=== PATIENT | female | born 1965 | race Caucasian/White ===

== ENCOUNTER 2016-09-12 09:08 | Emergency (ER) | payer SELFPAY ==
[~2016-09-12 09:08] MED LIST: ATENOLOL50 MG PO; CIPRO500 MG PO; GUAFENESIN400 MG PO; HYDROCHLOROTHIA25 MG PO; LAC PO; QUALITY CHOICE PO; ZOC10 PO
[2016-09-12 10:37] LABS: BASOPHIL % 0.3 % (0-2); PLATELET COUNT 229 x10^3mcL (130-400)
[2016-09-12 10:56] LABS: ALKALINE PHOSPHATASE 112 U/L (46-116); ALT/SGPT 149 U/L (14-59); AMYLASE 45 U/L (25-115); AST/SGOT 206 U/L (15-37); CALCIUM 9.2 mg/dL (8.5-10.1); CARBON DIOXIDE 34.4 mmol/L (21-32); CHLORIDE SERUM 100 mmol/L (98-107); CREATININE SERUM 0.7 mg/dL (0.6-1.0); GFR1 > 60 mL/min; GLUCOSE SERUM 104 mg/dL (74-106); LIPASE 128 IU/L (73-393); SODIUM SERUM 142 mmol/L (136-145); TOTAL PROTEIN, SERUM 7.8 g/dL (6.4-8.2)
[2016-09-12 12:29] LABS: microscopic required? YES; urine erythrocyte 1+ (NEGATIVE)
[2016-09-12 15:32] VITALS: BP 112/74
== END 2016-09-12 15:32 | disposition home or self-care (01) ==
LOC: ED 09:08
PROVIDERS: Emergency Medicine
DX: K59.00 Constipation, unspecified (principal); E87.6 Hypokalemia; I10 Essential (primary) hypertension; M06.9 Rheumatoid arthritis, unspecified
CPT/HCPCS: 83880; J1885; J3490

== ENCOUNTER 2016-10-27 12:30 | Emergency (ER) | payer SELFPAY ==
[~2016-10-27] VITALS: Ht 154.9 cm; Wt 80.3 kg
[2016-10-27 15:18] VITALS: BP 135/62
== END 2016-10-27 16:07 | disposition home or self-care (01) ==
LOC: ED 12:30
DX: S09.90XA Unspecified injury of head, initial encounter (principal); G43.909 Migraine, unspecified, not intractable, without status migrainosus; I10 Essential (primary) hypertension; Z88.5 Allergy status to narcotic agent; V49.9XXA Car occupant (driver) (passenger) injured in unspecified traffic accident, initial encounter; Y93.89 Activity, other specified; Y99.8 Other external cause status; Y92.89 Other specified places as the place of occurrence of the external cause

== ENCOUNTER 2017-03-03 08:44 | Inpatient (IN) | payer OTHER ==
[~2017-03-03] VITALS: Ht 154.9 cm; Wt 88.9 kg
[2017-03-03 08:50] VITALS: Ht 154.9 cm; Wt 88.9 kg
[2017-03-03 09:55] LABS: BASOPHIL % 0.3 % (0-2); PLATELET COUNT 173 x10^3mcL (130-400); RED CELL DISTRIBUTION WIDTH 13.2 % (11.5-14.5)
[2017-03-03 10:09] LABS: CALCIUM 8.9 mg/dL (8.5-10.1); CARBON DIOXIDE 28.3 mmol/L (21-32); CHLORIDE SERUM 107 mmol/L (98-107); CREATININE SERUM 0.6 mg/dL (0.6-1.0); GFR1 > 60 mL/min; GLUCOSE SERUM 110 mg/dL (74-106); POTASSIUM SERUM 3.5 mmol/L (3.5-5.1); SODIUM SERUM 144 mmol/L (136-145)
[2017-03-03 10:17] LABS: ALBUMIN 3.4 g/dL (3.4-5.0); ALKALINE PHOSPHATASE 251 U/L (46-116); ALT/SGPT 532 U/L (14-59); AST/SGOT 531 U/L (15-37); BILIRUBIN TOTAL 1.12 mg/dL (0.20-1.00); CHOLESTEROL 178 mg/dL (<200); CHOLESTEROL/HDL RATIO 3.6; HDL CHOLESTEROL 50 mg/dL (40-60); LIPASE 97 IU/L (73-393); TOTAL PROTEIN, SERUM 7.3 g/dL (6.4-8.2); TRIGLYCERIDES 87 mg/dL (<150)
[2017-03-03 10:18] LABS: T3 TOTAL 0.99 ng/mL
[2017-03-03 10:20] LABS: FREE T4 1.38 ng/dL (0.76-1.46); FREE THYROXINE INDEX 3.3 ug/dL (1.4-4.5); T4(THYROXINE) 9.8 ug/dL (4.7-13.3)
[2017-03-03 11:50] LABS: MAGNESIUM 2.1 mg/dL (1.8-2.4)
[2017-03-03 12:01] LABS: UA SPECIFIC GRAVITY 1.025 (1.005-1.035); microscopic required? YES
[2017-03-03 12:02] LABS: urine erythrocyte 2+ (NEGATIVE)
[2017-03-03 12:16] LABS: AMPHETAMINE QUAL UR NONE DETECTED (NEG <=1000)
[2017-03-03 14:55] VITALS: BP 131/85
[2017-03-03 21:47] VITALS: BP 112/51
[2017-03-04 05:30] VITALS: BP 134/78
[2017-03-04 06:34] LABS: PLATELET COUNT 153 x10^3mcL (130-400); RED CELL DISTRIBUTION WIDTH 12.1 % (11.5-14.5)
[2017-03-04 06:43] LABS: CALCIUM 8.1 mg/dL (8.5-10.1); CARBON DIOXIDE 23.8 mmol/L (21-32); CHLORIDE SERUM 110 mmol/L (98-107); CREATININE SERUM 0.5 mg/dL (0.6-1.0); GFR1 > 60 mL/min; GLUCOSE SERUM 80 mg/dL (74-106); MAGNESIUM 1.9 mg/dL (1.8-2.4); PHOSPHOROUS 3.5 mg/dL (2.5-4.9); POTASSIUM SERUM 3.7 mmol/L (3.5-5.1); SODIUM SERUM 143 mmol/L (136-145)
[2017-03-04 06:52] LABS: BASOPHIL % 2.1 % (0-2)
[2017-03-04 09:03] VITALS: BP 139/81
[2017-03-04 13:02] VITALS: BP 137/78
[2017-03-04 16:56] VITALS: BP 154/80
[2017-03-04 21:21] VITALS: BP 130/77
[2017-03-05 05:56] VITALS: BP 108/60
[2017-03-05 11:28] VITALS: BP 151/85
[2017-03-05] MEDS ORDERED: KEFLEX500 M1 PO (14:52)
[2017-03-05] MEDS ORDERED: LAC PO (14:53)
[2017-03-06 13:15] LABS: MITOCHONDRIAL ANTIBODY 12.6 Units (0.0-20.0)
== END 2017-03-05 16:40 | disposition home or self-care (01) | DRG 249 ==
LOC: ED 08:44 → DU 10:57 → MU 10:57 → DU 11:53 → MU 03-04 10:59
PROVIDERS: Internal Medicine Gastroenterology; Specialist; ADMIT Family Medicine
PROC: 0DB98ZX Excision of Duodenum, Via Natural or Artificial Opening Endoscopic, Diagnostic (ICD-10-PCS; principal; 2017-03-05 13:00)
PROC: 0DJD8ZZ Inspection of Lower Intestinal Tract, Via Natural or Artificial Opening Endoscopic (ICD-10-PCS; 2017-03-05 13:00)
DX: A08.4 Viral intestinal infection, unspecified (principal); N17.0 Acute kidney failure with tubular necrosis; N39.0 Urinary tract infection, site not specified; R31.9 Hematuria, unspecified; E78.5 Hyperlipidemia, unspecified; Z68.35 Body mass index [BMI] 35.0-35.9, adult; Z86.73 Personal history of transient ischemic attack (TIA), and cerebral infarction without residual deficits; Z88.6 Allergy status to analgesic agent; I10 Essential (primary) hypertension; Z90.710 Acquired absence of both cervix and uterus; Z90.49 Acquired absence of other specified parts of digestive tract; Z83.3 Family history of diabetes mellitus; Z82.3 Family history of stroke; Z82.49 Family history of ischemic heart disease and other diseases of the circulatory system
CPT/HCPCS: 43235; 45378; 83516; 83880; 84439; J0696; J1200; J1610; J1885; J2250; J2310; J2405; J2765; J3010; J3490; J7030; Q0092

== ENCOUNTER 2018-02-07 13:31 | Inpatient (IN) | payer OTHER ==
[~2018-02-07] VITALS: Ht 154.9 cm; Wt 86.6 kg
[~2018-02-07 13:31] MED LIST changes: +KEFLEX500 M1 PO
[2018-02-07 13:37] VITALS: Ht 154.9 cm; Wt 86.6 kg
[2018-02-07 14:18] LABS: BASOPHIL % 0.3 % (0-2); PLATELET COUNT 226 x10^3mcL (130-400); RED CELL DISTRIBUTION WIDTH 13.3 % (11.5-14.5)
[2018-02-07 14:21] LABS: UA SPECIFIC GRAVITY 1.025 (1.005-1.035); microscopic required? YES; urine erythrocyte 2+ (NEGATIVE)
[2018-02-07 14:29] LABS: CALCIUM 8.7 mg/dL (8.5-10.1); CARBON DIOXIDE 26.1 mmol/L (21-32); CHLORIDE SERUM 102 mmol/L (98-107); CREATININE SERUM 0.6 mg/dL (0.6-1.0); GFR1 > 60 mL/min; GLUCOSE SERUM 101 mg/dL (74-106); POTASSIUM SERUM 3.4 mmol/L (3.5-5.1); SODIUM SERUM 137 mmol/L (136-145)
[2018-02-07 14:34] LABS: ALBUMIN 3.9 g/dL (3.4-5.0); ALKALINE PHOSPHATASE 120 U/L (46-116); ALT/SGPT 62 U/L (14-59); AST/SGOT 28 U/L (15-37); BILIRUBIN TOTAL 0.4 mg/dL (0.20-1.00); HDL CHOLESTEROL 42 mg/dL (40-60); LIPASE 81 IU/L (73-393); TRIGLYCERIDES 106 mg/dL (<150)
[2018-02-07 14:45] LABS: FREE T4 1.27 ng/dL (0.76-1.46); FREE THYROXINE INDEX 3.5 ug/dL (1.4-4.5)
[2018-02-07 14:47] LABS: T3 TOTAL 1.5 ng/mL
[2018-02-07 14:49] LABS: CHOLESTEROL 203 mg/dL (<200); CHOLESTEROL/HDL RATIO 4.8
[2018-02-07 18:31] LABS: MAGNESIUM 2.2 mg/dL (1.8-2.4); PHOSPHOROUS 4.1 mg/dL (2.5-4.9)
[2018-02-07 19:21] VITALS: BP 105/55
[2018-02-07 20:48] VITALS: BP 96/55
[2018-02-07 22:11] LABS: AMPHETAMINE QUAL UR NONE DETECTED (See below)
[2018-02-08 05:07] VITALS: BP 94/57
[2018-02-08 05:52] LABS: BASOPHIL % 0.6 % (0-2); PLATELET COUNT 188 x10^3mcL (130-400); RED CELL DISTRIBUTION WIDTH 13.8 % (11.5-14.5)
[2018-02-08 08:42] LABS: CARBON DIOXIDE 27.5 mmol/L (21-32); CHLORIDE SERUM 112 mmol/L (98-107); CREATININE SERUM 0.5 mg/dL (0.6-1.0); GFR1 > 60 mL/min; GLUCOSE SERUM 95 mg/dL (74-106); SODIUM SERUM 147 mmol/L (136-145)
[2018-02-08 10:01] VITALS: BP 97/55
[2018-02-08 12:20] VITALS: BP 114/66
[2018-02-08 16:23] VITALS: BP 101/62
[2018-02-08 21:07] VITALS: BP 97/53
[2018-02-09 05:06] VITALS: BP 95/47
[2018-02-09 06:20] LABS: BASOPHIL % 0.6 % (0-2); PLATELET COUNT 194 x10^3mcL (130-400); RED CELL DISTRIBUTION WIDTH 13.4 % (11.5-14.5)
[2018-02-09 07:22] LABS: ALKALINE PHOSPHATASE 170 U/L (46-116); ALT/SGPT 241 U/L (14-59); AST/SGOT 192 U/L (15-37); BILIRUBIN DIRECT 0.22 mg/dL (0.0-0.2); BILIRUBIN TOTAL 0.52 mg/dL (0.20-1.00); CARBON DIOXIDE 26.6 mmol/L (21-32); CHLORIDE SERUM 113 mmol/L (98-107); CREATININE SERUM 0.6 mg/dL (0.6-1.0); GFR1 > 60 mL/min; GLUCOSE SERUM 100 mg/dL (74-106); PHOSPHOROUS 3.2 mg/dL (2.5-4.9); POTASSIUM SERUM 4.5 mmol/L (3.5-5.1); SODIUM SERUM 146 mmol/L (136-145)
[2018-02-09 07:32] LABS: ALBUMIN 2.7 g/dL (3.4-5.0); TOTAL PROTEIN, SERUM 5.8 g/dL (6.4-8.2)
[2018-02-09 08:50] VITALS: BP 94/56
[2018-02-09 12:59] VITALS: BP 126/79
[2018-02-09 16:21] VITALS: BP 128/78
[2018-02-09 22:05] VITALS: BP 123/63
[2018-02-10 05:09] VITALS: BP 105/60
[2018-02-10 06:46] LABS: BASOPHIL % 0.5 % (0-2); PLATELET COUNT 195 x10^3mcL (130-400); RED CELL DISTRIBUTION WIDTH 13.3 % (11.5-14.5)
[2018-02-10 07:20] LABS: CALCIUM 8.1 mg/dL (8.5-10.1); CARBON DIOXIDE 27.9 mmol/L (21-32); CHLORIDE SERUM 110 mmol/L (98-107); CREATININE SERUM 0.6 mg/dL (0.6-1.0); GFR1 > 60 mL/min; GLUCOSE SERUM 116 mg/dL (74-106); PHOSPHOROUS 3.7 mg/dL (2.5-4.9); SODIUM SERUM 145 mmol/L (136-145)
[2018-02-10 08:00] VITALS: BP 122/66
[2018-02-10 08:42] LABS: BILIRUBIN DIRECT 0.49 mg/dL (0.0-0.2); BILIRUBIN TOTAL 0.8 mg/dL (0.20-1.00)
[2018-02-10 08:43] LABS: ALBUMIN 2.7 g/dL (3.4-5.0)
[2018-02-10 13:45] VITALS: BP 136/80
[2018-02-10 17:00] VITALS: BP 127/61
[2018-02-10 20:45] VITALS: BP 133/74
[2018-02-11 04:48] VITALS: BP 104/67
[2018-02-11 06:54] LABS: BASOPHIL % 0.5 % (0-2); PLATELET COUNT 202 x10^3mcL (130-400); RED CELL DISTRIBUTION WIDTH 13.7 % (11.5-14.5)
[2018-02-11 07:09] LABS: CALCIUM 8.7 mg/dL (8.5-10.1); CHLORIDE SERUM 107 mmol/L (98-107); CREATININE SERUM 0.7 mg/dL (0.6-1.0); GFR1 > 60 mL/min; GLUCOSE SERUM 102 mg/dL (74-106); POTASSIUM SERUM 3.9 mmol/L (3.5-5.1); SODIUM SERUM 144 mmol/L (136-145)
[2018-02-11 08:51] LABS: BILIRUBIN DIRECT 0.44 mg/dL (0.0-0.2); BILIRUBIN TOTAL 0.9 mg/dL (0.20-1.00); TOTAL PROTEIN, SERUM 6.5 g/dL (6.4-8.2)
[2018-02-11 13:05] VITALS: BP 104/51
[2018-02-11 18:46] VITALS: BP 105/57
[2018-02-11 21:59] VITALS: BP 133/76
[2018-02-12 05:52] VITALS: BP 114/75
[2018-02-12 07:16] LABS: CALCIUM 8.8 mg/dL (8.5-10.1); CARBON DIOXIDE 31.7 mmol/L (21-32); CHLORIDE SERUM 103 mmol/L (98-107); CREATININE SERUM 0.7 mg/dL (0.6-1.0); GFR1 > 60 mL/min; GLUCOSE SERUM 122 mg/dL (74-106); POTASSIUM SERUM 4.1 mmol/L (3.5-5.1); SODIUM SERUM 143 mmol/L (136-145)
[2018-02-12 07:21] LABS: BASOPHIL % 0.3 % (0-2); PLATELET COUNT 211 x10^3mcL (130-400); RED CELL DISTRIBUTION WIDTH 13.5 % (11.5-14.5)
[2018-02-12 08:04] VITALS: BP 143/81
[2018-02-12 08:06] LABS: LIPASE 6727 IU/L (73-393)
[2018-02-12 12:12] VITALS: BP 117/62
[2018-02-12 16:01] VITALS: BP 106/68
[2018-02-12 21:16] VITALS: BP 128/69
[2018-02-13 05:39] VITALS: BP 110/50
[2018-02-13 07:12] LABS: CALCIUM 8.9 mg/dL (8.5-10.1); CARBON DIOXIDE 29.4 mmol/L (21-32); CHLORIDE SERUM 105 mmol/L (98-107); CREATININE SERUM 0.7 mg/dL (0.6-1.0); GFR1 > 60 mL/min; GLUCOSE SERUM 98 mg/dL (74-106); LIPASE 621 IU/L (73-393); POTASSIUM SERUM 4.1 mmol/L (3.5-5.1); SODIUM SERUM 141 mmol/L (136-145)
[2018-02-13 07:18] LABS: BASOPHIL % 0.4 % (0-2); PLATELET COUNT 203 x10^3mcL (130-400); RED CELL DISTRIBUTION WIDTH 13.9 % (11.5-14.5)
[2018-02-13 07:54] VITALS: BP 109/60
[2018-02-13 10:33] LABS: BILIRUBIN DIRECT 0.13 mg/dL (0.0-0.2); BILIRUBIN TOTAL 0.5 mg/dL (0.20-1.00); TOTAL PROTEIN, SERUM 6.2 g/dL (6.4-8.2)
[2018-02-13 10:34] LABS: ALBUMIN 2.9 g/dL (3.4-5.0)
[2018-02-13] MEDS ORDERED: BIA500 PO (11:08)
[2018-02-13] MEDS ORDERED: AMO500 PO (11:08)
[2018-02-13] MEDS ORDERED: PROTONIX40 MG PO (11:09)
[2018-02-13] MEDS ORDERED: LAC PO (11:10)
[2018-02-13 13:01] VITALS: BP 115/76
[2018-02-13 13:09] VITALS: BP 115/76
== END 2018-02-13 14:37 | disposition home or self-care (01) ==
LOC: ED 13:31 → DU 17:34
PROVIDERS: Family Medicine; General Practice; Internal Medicine; Internal Medicine Gastroenterology; Specialist
PROC: 0DB68ZX Excision of Stomach, Via Natural or Artificial Opening Endoscopic, Diagnostic (ICD-10-PCS; principal; 2018-02-11 09:00)
PROC: 0F798ZZ Dilation of Common Bile Duct, Via Natural or Artificial Opening Endoscopic (ICD-10-PCS; 2018-02-11 09:00)
PROC: 0F778ZZ Dilation of Common Hepatic Duct, Via Natural or Artificial Opening Endoscopic (ICD-10-PCS; 2018-02-11 09:00)
DX: K83.4 Spasm of sphincter of Oddi (principal); K85.90 Acute pancreatitis without necrosis or infection, unspecified; E44.0 Moderate protein-calorie malnutrition; K83.1 Obstruction of bile duct; K26.9 Duodenal ulcer, unspecified as acute or chronic, without hemorrhage or perforation; K29.70 Gastritis, unspecified, without bleeding; E66.9 Obesity, unspecified; N39.0 Urinary tract infection, site not specified; E87.6 Hypokalemia; I10 Essential (primary) hypertension; R74.0 Nonspecific elevation of levels of transaminase and lactic acid dehydrogenase [LDH]; E78.5 Hyperlipidemia, unspecified; Z68.36 Body mass index [BMI] 36.0-36.9, adult; Z86.73 Personal history of transient ischemic attack (TIA), and cerebral infarction without residual deficits; Z88.5 Allergy status to narcotic agent; Z90.710 Acquired absence of both cervix and uterus; Z82.0 Family history of epilepsy and other diseases of the nervous system; Z83.3 Family history of diabetes mellitus; Z82.3 Family history of stroke; Z82.49 Family history of ischemic heart disease and other diseases of the circulatory system
CPT/HCPCS: 43260; 74181; 83880; 84439; C1769; C9113; J0696; J1170; J1610; J1885; J1956; J2405; J2765; J3010; J3490; J7030; J7120; Q0092; Q9967

== ENCOUNTER 2018-07-11 18:51 | Emergency (ER) | payer SELFPAY ==
[~2018-07-11] VITALS: Ht 154.9 cm; Wt 90.7 kg
[~2018-07-11 18:51] MED LIST changes: +AMO500 PO; +BIA500 PO; +PROTONIX40 MG PO
[2018-07-11 19:19] VITALS: BP 128/86; Ht 154.9 cm; Wt 90.7 kg
== END 2018-07-11 20:17 | disposition home or self-care (01) ==
LOC: ED 18:51
DX: M70.61 Trochanteric bursitis, right hip (principal); Y93.89 Activity, other specified; I10 Essential (primary) hypertension; Z86.73 Personal history of transient ischemic attack (TIA), and cerebral infarction without residual deficits; Z90.710 Acquired absence of both cervix and uterus
CPT/HCPCS: J1885

== ENCOUNTER 2019-05-24 14:34 | Emergency (ER) | payer OTHER ==
[~2019-05-24] VITALS: Ht 154.9 cm; Wt 88.5 kg
[2019-05-24 14:38] VITALS: Ht 154.9 cm; Wt 88.5 kg
[2019-05-24 15:13] LABS: CALCIUM 8.5 mg/dL (8.5-10.1); CARBON DIOXIDE 32.7 mmol/L (21-32); CHLORIDE SERUM 103 mmol/L (98-107); CREATININE SERUM 0.6 mg/dL (0.6-1.0); GFR1 > 60 mL/min; GLUCOSE SERUM 99 mg/dL (74-106); POTASSIUM SERUM 3.2 mmol/L (3.5-5.1); SODIUM SERUM 140 mmol/L (136-145)
[2019-05-24 15:15] LABS: PLATELET COUNT 152 x10^3mcL (130-400); RED CELL DISTRIBUTION WIDTH 13.4 % (11.5-14.5)
[2019-05-24 15:18] LABS: ALBUMIN 3.6 g/dL (3.4-5.0); ALKALINE PHOSPHATASE 93 U/L (46-116); ALT/SGPT 62 U/L (14-59); AST/SGOT 48 U/L (15-37); BILIRUBIN TOTAL 0.3 mg/dL (0.20-1.00); TOTAL PROTEIN, SERUM 7.7 g/dL (6.4-8.2)
[2019-05-24 16:10] LABS: BAND NEUTROPHIL 3 % (0-10); MONOCYTE 7 % (0-7); SEGMENTED NEUTROPHILS 41 % (37-75)
[2019-05-24 16:11] LABS: PLATELET MORPHOLOGY FEW LARGE PLATELET; rbc morphology (normal/abnorm) NORMAL (NORMAL)
[2019-05-24 17:22] VITALS: BP 107/70
== END 2019-05-24 17:22 | disposition home or self-care (01) ==
LOC: ED 14:34
DX: R07.89 Other chest pain (principal); R11.2 Nausea with vomiting, unspecified; R19.7 Diarrhea, unspecified; I10 Essential (primary) hypertension; Z90.710 Acquired absence of both cervix and uterus; Z90.49 Acquired absence of other specified parts of digestive tract; Z88.5 Allergy status to narcotic agent
CPT/HCPCS: 36415; J1885; Q0162

== ENCOUNTER 2019-09-12 13:30 | Emergency (ER) | payer OTHER, SELFPAY ==
[~2019-09-12] VITALS: Ht 154.9 cm; Wt 72.6 kg
[2019-09-12 16:02] VITALS: Ht 154.9 cm; Wt 72.6 kg
[2019-09-12 16:16] VITALS: BP 156/96
== END 2019-09-12 16:16 | disposition home or self-care (01) ==
LOC: ED 13:30
DX: Z03.818 Encounter for observation for suspected exposure to other biological agents ruled out (principal); I10 Essential (primary) hypertension; Z86.73 Personal history of transient ischemic attack (TIA), and cerebral infarction without residual deficits; Z90.710 Acquired absence of both cervix and uterus; Z88.5 Allergy status to narcotic agent
CPT/HCPCS: U0003-CS

== ENCOUNTER 2020-03-04 18:20 | Emergency (ER) | payer OTHER, SELFPAY ==
[~2020-03-04] VITALS: Ht 154.9 cm; Wt 77.1 kg
[2020-03-04 18:23] VITALS: Ht 154.9 cm; Wt 77.1 kg
[2020-03-04 19:39] VITALS: BP 142/98
== END 2020-03-04 19:39 | disposition home or self-care (01) ==
LOC: ED 18:20
DX: U07.1 COVID-19 (principal); B34.9 Viral infection, unspecified; I10 Essential (primary) hypertension; Z88.6 Allergy status to analgesic agent; Z86.73 Personal history of transient ischemic attack (TIA), and cerebral infarction without residual deficits
CPT/HCPCS: U0003